=== PATIENT | male | born 1960 | race Caucasian/White ===

== ENCOUNTER 2016-10-30 21:15 | Inpatient (IN) | payer OTHER ==
[~2016-10-30] VITALS: Ht 180.3 cm; Wt 102.3 kg
[2016-10-30 22:32] LABS: BASOPHIL 1.2 % (0-2); EOSINOPHIL 0.1 % (0-5); HCT 46.3 % (42.0-52.0); MCH 28.2 pg (25.0-31.0); MCHC 34.6 g/dL (32.0-36.0); MCV 81.5 fL (78.0-100.0); MPV 9.5 fL (6.0-9.5); NEUTROPHIL 69.7 % (41-80); PLT 354 K/uL (150-400); RBC 5.68 M/uL (4.70-6.00); WBC 17.3 K/uL (4.0-10.5)
[2016-10-30 22:42] LABS: INR 1.11 (0.9-1.2); PROTHROMBIN TIME 13.9 SECONDS (11.7-14.0); PTT 26.2 SECONDS (23.2-31.4)
[2016-10-30 22:43] LABS: D-DIMER 0.71 ug/mLFEU (0.00-0.41)
[2016-10-30 22:52] LABS: BILIRUBIN - TOTAL 0.3 mg/dL (0.1-1.0); CKMB 1.57 ng/mL (0.97-4.94); CREATININE 1.2 mg/dL (0.7-1.2); TROPONIN T < 0.010 ng/mL
[2016-10-30 22:53] LABS: C-REACTIVE PROTEIN 1.7 mg/dL (0.00-0.50)
[2016-10-30 22:54] LABS: LACTIC ACID 4.9 mmol/L (0.5-2.2)
[2016-10-30 22:59] LABS: FT4 (FREE T4) 2.07 ng/dL (0.93-1.70); TSH (THYROID STIM HORMONE) 2.8 uIU/mL (0.270-4.200)
[2016-10-30 23:58] LABS: BILIRUBIN NEGATIVE (NEGATIVE); BLOOD NEGATIVE Ery/uL (NEGATIVE); CLARITY CLEAR (CLEAR); COLOR YELLOW (YELLOW); GLUCOSE (U) 3+ mg/dL (NORMAL); KETONE (U) NEGATIVE (NEGATIVE); LEUKOCYTES NEGATIVE Leu/uL (NEGATIVE); NITRITE NEGATIVE (NEGATIVE); PROTEIN TRACE (LOW) mg/dL (NEGATIVE); SPECIFIC GRAVITY 1.025 (1.001-1.030)
[2016-10-31 00:04] LABS: BACTERIA 1+; MUCOUS MODERATE
[2016-10-31 07:56] LABS: BASOPHIL 0.7 % (0-2); EOSINOPHIL 0.5 % (0-5); HCT 39.2 % (42.0-52.0); HGB 13.5 g/dl (13.2-18.0); LYMPHOCYTE 33.3 % (15-48); MCH 28.2 pg (25.0-31.0); MCHC 34.4 g/dL (32.0-36.0); MONOCYTE 9.5 % (0-12); MPV 9.2 fL (6.0-9.5); PLT 254 K/uL (150-400); RBC 4.78 M/uL (4.70-6.00); RDW 14.9 % (11.5-14.0)
[2016-10-31 07:58] LABS: WBC 14.7 K/uL (4.0-10.5)
[2016-10-31 08:14] LABS: CREATININE 0.8 mg/dL (0.7-1.2); POTASSIUM 3.6 mmol/L (3.5-5.1)
[2016-11-01 04:16] LABS: HCT 39.1 % (42.0-52.0); HGB 13.4 g/dl (13.2-18.0); MCH 28.5 pg (25.0-31.0); MCHC 34.3 g/dL (32.0-36.0); MPV 9.3 fL (6.0-9.5); RBC 4.71 M/uL (4.70-6.00); RDW 14.8 % (11.5-14.0); WBC 12.8 K/uL (4.0-10.5)
[2016-11-01 04:35] LABS: CREATININE 0.8 mg/dL (0.7-1.2); POTASSIUM 3.8 mmol/L (3.5-5.1)
[2016-11-02 04:03] LABS: HCT 38.1 % (42.0-52.0); HGB 13.2 g/dl (13.2-18.0); MCH 28.5 pg (25.0-31.0); MCHC 34.6 g/dL (32.0-36.0); MCV 82.3 fL (78.0-100.0); MPV 9.3 fL (6.0-9.5); RBC 4.63 M/uL (4.70-6.00); RDW 14.6 % (11.5-14.0); WBC 12.2 K/uL (4.0-10.5)
[2016-11-02 04:25] LABS: ALBUMIN 3.4 g/dL (3.5-5.0); BILIRUBIN - TOTAL 0.4 mg/dL (0.1-1.0); CREATININE 0.8 mg/dL (0.7-1.2); POTASSIUM 3.5 mmol/L (3.5-5.1); TOTAL PROTEIN 5.4 g/dL (6.4-8.3)
[2016-11-02 09:02] LABS: BILIRUBIN NEGATIVE (NEGATIVE); BLOOD NEGATIVE Ery/uL (NEGATIVE); CLARITY CLEAR (CLEAR); COLOR YELLOW (YELLOW); GLUCOSE (U) 3+ mg/dL (NORMAL); KETONE (U) NEGATIVE (NEGATIVE); LEUKOCYTES NEGATIVE Leu/uL (NEGATIVE); NITRITE NEGATIVE (NEGATIVE); PROTEIN NEGATIVE (NEGATIVE)
== END 2016-11-02 11:46 | disposition home or self-care (01) | DRG 871 ==
LOC: FER 21:15 → FICU 10-31 00:30 → FMS 11-01 14:48
PROVIDERS: Emergency Medicine Emergency Medical Services; Hospitalist; ADMIT Internal Medicine Cardiovascular Disease
DX: A41.9 Sepsis, unspecified organism (principal); G93.40 Encephalopathy, unspecified; G37.9 Demyelinating disease of central nervous system, unspecified; E11.9 Type 2 diabetes mellitus without complications; I10 Essential (primary) hypertension; B35.6 Tinea cruris; N39.0 Urinary tract infection, site not specified; E78.5 Hyperlipidemia, unspecified; F32.9 Major depressive disorder, single episode, unspecified; F41.9 Anxiety disorder, unspecified; Z85.47 Personal history of malignant neoplasm of testis; Z79.82 Long term (current) use of aspirin
CPT/HCPCS: 36415; 70450; 71010; 73080; 80048; 80053; 81001; 81003; 82550; 82553; 82962; 83605; 84145; 84439; 84443; 84484; 85025; 85379; 85610; 85730; 86140; 87040; 87088; 93005; 94010; 97163; 97167; 97530; 97530-GP; 97535; J2060; J2543

== ENCOUNTER 2020-08-20 17:02 | Emergency (ER) | payer OTHER ==
[2020-08-20 17:32] LABS: BASOPHIL 0.5 % (0-2); EOSINOPHIL 0.2 % (0-5); HCT 41.1 % (42.0-52.0); HGB 13.5 g/dl (13.2-18.0); LYMPHOCYTE 19.9 % (15-48); MCH 29.5 pg (25.0-31.0); MCHC 32.8 g/dL (32.0-36.0); MCV 89.7 fL (78.0-100.0); MPV 10.4 fL (6.0-9.5); NRBC 0; PLT 280 K/uL (150-400); RBC 4.58 M/uL (4.70-6.00); RDW 14.5 % (11.5-14.0); WBC 11.1 K/uL (4.0-10.5)
[2020-08-20 17:37] LABS: INR 1.12 (0.9-1.2); PROTHROMBIN TIME 13.7 SECONDS (11.4-13.6)
[2020-08-20 17:54] LABS: ALBUMIN 3.7 g/dL (3.4-5.0); BILIRUBIN - TOTAL 0.5 mg/dL (0.2-1.0); BUN/CREAT RATIO (CALC) 16.7 RATIO; CKMB <0.5 ng/mL (0.0-3.6); CREATININE 0.72 mg/dL (0.67-1.17); GLOBULIN (CALCULATION) 4.8 g/dL; POTASSIUM 4.1 mmol/L (3.5-5.1); TOTAL PROTEIN 8.5 g/dL (6.4-8.2)
[2020-08-20] MEDS ORDERED: MEDROL 4MG DOSEP4 MG PO (18:41)
== END 2020-08-20 19:00 | disposition home or self-care (01) ==
LOC: FER 17:02
PROVIDERS: Emergency Medicine
DX: G35 Multiple sclerosis (principal); E11.9 Type 2 diabetes mellitus without complications; M21.372 Foot drop, left foot; R29.708 NIHSS score 8; Z85.47 Personal history of malignant neoplasm of testis; Z88.5 Allergy status to narcotic agent
CPT/HCPCS: 36415; 70450; 71045; 80053; 80061; 82550; 82553; 83874; 84484; 85025; 85610; 93005; J7512

== ENCOUNTER 2020-09-03 17:49 | Emergency (ER) | payer OTHER ==
[~2020-09-03 17:49] MED LIST: MEDROL 4MG DOSEP4 MG PO
[2020-09-03 18:39] LABS: BASOPHIL 0.3 % (0-2); EOSINOPHIL 0.2 % (0-5); HCT 41.1 % (42.0-52.0); HGB 13.8 g/dl (13.2-18.0); LYMPHOCYTE 8.6 % (15-48); MCHC 33.6 g/dL (32.0-36.0); MCV 89.3 fL (78.0-100.0); MONOCYTE 2.1 % (0-12); MPV 11.1 fL (6.0-9.5); NEUTROPHIL 87.2 % (41-80); NRBC 0; PLT 205 K/uL (150-400); RDW 14.9 % (11.5-14.0); WBC 13.4 K/uL (4.0-10.5)
[2020-09-03 18:42] LABS: ALBUMIN 3.1 g/dL (3.4-5.0); BILIRUBIN - TOTAL 0.6 mg/dL (0.2-1.0); BUN/CREAT RATIO (CALC) 18.2 RATIO; CREATININE 0.66 mg/dL (0.67-1.17); POTASSIUM 4.6 mmol/L (3.5-5.1); TOTAL PROTEIN 7.1 g/dL (6.4-8.2)
[2020-09-03 18:47] LABS: BILIRUBIN NEGATIVE (NEGATIVE); BLOOD NEGATIVE Ery/uL (NEGATIVE); CLARITY CLEAR (CLEAR); COLOR YELLOW (YELLOW); GLUCOSE (U) 1+ mg/dL (NORMAL); LEUKOCYTES NEGATIVE Leu/uL (NEGATIVE); NITRITE NEGATIVE (NEGATIVE); PROTEIN NEGATIVE (NEGATIVE); SPECIFIC GRAVITY 1.015 (1.001-1.030); pH 7.5 (5.0-9.0)
[2020-09-03 19:22] LABS: CORONAVIRUS 2019 SARS-COV-2 NEGATIVE (NEGATIVE); INFLUENZA A NAA NEGATIVE (NEGATIVE)
== END 2020-09-04 01:15 | disposition other institution (70) ==
LOC: FER 17:49
PROVIDERS: Emergency Medicine
DX: G35 Multiple sclerosis (principal); R26.2 Difficulty in walking, not elsewhere classified; R59.0 Localized enlarged lymph nodes; E11.9 Type 2 diabetes mellitus without complications; Z79.84 Long term (current) use of oral hypoglycemic drugs; Z20.822 Contact with and (suspected) exposure to COVID-19
CPT/HCPCS: 36415; 71045; 71275; 80053; 81003; 85025; Q9967; U0002